=== PATIENT | male | born 1965 | race Caucasian/White ===

== ENCOUNTER 2018-08-18 07:58 | Emergency (ER) | payer OTHER ==
--- NOTE | 2018-08-18 08:01 | PDOC ---
History of Present Illness - General Chief Complaint: Psychiatric Stated Complaint: ANXIETY Time Seen by Provider: 08/18/18 08:01 History Source: Patient Exam Limitations: No Limitations - History of Present Illness Initial Comments: 53 yo M history anxiety presents with anxiety symptoms. He states that he is currently unemployed, recently had an interview that did not go well, and he has felt anxiety since then. He states that he last saw his PMD 1 month ago, has been tapering down his dose of klonopin to decrease his dependence on it. Has been using prn most recently. Past History - Past Medical History Allergies/Adverse Reactions: Allergies Allergy/AdvReac Type Severity Reaction Status Date / Time No Known Allergies Allergy Verified 08/18/18 07:59 Home Medications: Ambulatory Orders Amitriptyline HCl [Elavil -] 25 mg PO DAILY 08/18/18 Betamethasone Valerate [Valisone] 1 applic TP DAILY 08/18/18 Clonazepam 1 mg PO BID 08/18/18 Sumatriptan Succinate 100 mg PO DAILY 08/18/18 clonazePAM [Klonopin -] 0.5 mg PO DAILY #3 tablet MDD 1 tab 08/18/18 Review of Systems - Review of Systems Able to Perform ROS?: Yes Comments:: GENERAL/CONSTITUTIONAL: No fever or chills. No weakness. HEAD, EYES, EARS, NOSE AND THROAT: No change in vision. No ear pain or discharge. No sore throat. CARDIOVASCULAR: No chest pain or shortness of breath. RESPIRATORY: No cough, wheezing, or hemoptysis. GASTROINTESTINAL: No nausea, vomiting, diarrhea or constipation. GENITOURINARY: No dysuria, frequency, or change in urination. MUSCULOSKELETAL: No joint or muscle swelling or pain. No neck or back pain. SKIN: No rash. NEUROLOGIC: No headache, vertigo, loss of consciousness, or change in strength/ sensation. ENDOCRINE: No increased thirst. No abnormal weight change. HEMATOLOGIC/LYMPHATIC: No anemia, easy bleeding, or history of blood clots. ALLERGIC/IMMUNOLOGIC: No hives or skin allergy. PSYCHIATRIC: +Anxiety *Physical Exam - Physical Exam Comments: GENERAL: Awake, alert, and fully oriented, anxious HEAD: No signs of trauma EYES: PERRLA, EOMI, sclera anicteric, conjunctiva clear ENT: Auricles normal inspection, hearing grossly normal, nares patent, oropharynx clear without exudates. Moist mucosa NECK: Normal ROM, supple, no lymphadenopathy, JVD, or masses LUNGS: Mild tachypnea. Breath sounds equal, clear to auscultation bilaterally. No wheezes, and no crackles HEART: Regular rate and rhythm, normal S1 and S2, no murmurs, rubs or gallops ABDOMEN: Soft, nontender, normoactive bowel sounds. No guarding, no rebound. No masses EXTREMITIES: Normal range of motion, no edema. No clubbing or cyanosis. No cords, erythema, or tenderness NEUROLOGICAL: Cranial nerves II through XII grossly intact. Normal speech, normal gait. Motor and sensation intact SKIN: Warm, Dry, normal turgor, no rashes or lesions noted. PSYCHIATRIC: Anxious, tearful on interview. Poor eye contact. No SI/HI/AH/VH. Medical Decision Making - Medical Decision Making 08/18/18 08:19 i-STOP reference #[id number] Last Rx was for lorazepam 0.5mg tabs- 1 po BID x7 days in January of 2018. 08/18/18 08:23 Checked prior pill bottles with patient, he states that his medicaid says "Jc" and not [facility]. Verified prescriptions with reference Reference #: [id number] Last rx on 08/01- 15 day supply of clonazepam. I will give him a very limited supply to carry through the weekend and see his PMD Monday. *DC/Admit/Observation/Transfer Diagnosis at time of Disposition: Anxiety - Discharge Dispostion Disposition: HOME Condition at time of disposition: Stable Decision to Admit order: No - Referrals - Patient Instructions - Post Discharge Activity
[2018-08-18 08:12] VITALS: BP 145/101; PULSE 93; TEMP 98.1; BMI 28.0
[2018-08-18] MEDS ORDERED: clonazePAM 0.5 MG TABLET PO ONE (08:25)
[2018-08-18] MEDS ORDERED: clonazePAM 0.5 MG TABLET ONE (08:28)
== END 2018-08-18 08:38 | disposition home or self-care (01) ==
LOC: FER 07:58
DX: F41.9 Anxiety disorder, unspecified (principal)
CPT/HCPCS: 99281-25